=== PATIENT | male | born 1960 | race Caucasian/White ===

== ENCOUNTER 2023-12-08 13:35 | Emergency (ER) | payer BC, OTHER ==
[2023-12-08 13:57] VITALS: BP 149/101; PULSE 86
[2023-12-08] MEDS: Lidocaine 1% 5 ML VIAL INJECT ONE (14:06)
[2023-12-08] MEDS: Diphtheria,Pertussis(Acell),Tetanus Vaccine 0.5 ML Syringe IM ONE (14:07)
[2023-12-08] MEDS: ceFAZolin 2 GM Vial IVPUSH ONE (14:56)
== END 2023-12-08 15:15 | disposition home or self-care (01) ==
LOC: CC.ED 13:35
DX: S68.113A Complete traumatic metacarpophalangeal amputation of left middle finger, initial encounter (principal); Z79.899 Other long term (current) drug therapy; Z88.8 Allergy status to other drugs, medicaments and biological substances; Z23 Encounter for immunization; W31.2XXA Contact with powered woodworking and forming machines, initial encounter
CPT/HCPCS: 12002; 73130-LT; 90471; 90715; 96374; 99283-25; J0690; J3490

== ENCOUNTER 2024-12-05 13:47 | Emergency (ER) | payer OTHER, BC ==
[2024-12-05 13:50] VITALS: BP 128/77; PULSE 78
== END 2024-12-05 14:15 | disposition home or self-care (01) ==
LOC: CC.ED 13:47
DX: M70.21 Olecranon bursitis, right elbow (principal); I10 Essential (primary) hypertension; Z91.041 Radiographic dye allergy status; Z79.899 Other long term (current) drug therapy
CPT/HCPCS: 73080-RT; 99283